=== PATIENT | male | born 1970 | race Caucasian/White ===

== ENCOUNTER 2016-08-16 18:25 | Emergency (ER) | payer SELFPAY ==
[2016-08-16 18:36] VITALS: BP 132/82; PULSE 84; RESP 16; TEMP 97.7; O2SAT 95
[2016-08-16] MEDS ORDERED: ACETAMINOPHEN 325 MG TAB PO ONE (18:40)
[2016-08-16] MEDS ORDERED: ONDANSETRON DISINTEGRATING 4 MG TAB PO ONE (18:40)
--- NOTE | 2016-08-16 18:55 | EDPHY ---
H & P Time Seen by Provider: 08/16/16 18:39 HPI/ROS: This patient was shoveling his driveway-no slipped and struck his occiput against the ground. He was briefly dazed for 2-3 minutes and now has a generalized headache peak intensity 8/10 down to 5/10 after Aleve-2 prior to arrival. The incident occurred at home 90 minutes prior to arrival. He reports mild nausea associated with this and mild fatigue. No other associated symptoms except mild trapezius discomfort bilaterally. ROS: Neuro: No retrograde amnesia. No focal neuro complaints. He denies any significant confusion. No LOC. HEENT: He notes no nasal pain, lacerations abrasions to his head. No intraoral injuries. Musculoskeletal: No midline neck or back pain. No extremity injuries from the incident. Pulmonary: No chest wall pain or shortness of breath Cardiovascular: No lightheadedness GI: No belly pain, or vomiting. 7 point ROS is otherwise negative Past Medical/Surgical History: Otherwise healthy Smoking Status: Never smoked Physical Exam: Physical exam: Vital signs are normal General: Patient is in no acute distress. HEENT: Is no external evidence of trauma on exam. Nose atraumatic. Ears: Clear bilaterally with no hemotympanum. Oropharynx: No dental trauma or malocclusion. No intraoral lacerations. Eyes: Pupils are equal and reactive to light. Extraocular motions are intact. Optic fundi: Clear with no papilledema or hemorrhage. Neck: Trachea is midline with no stridor. The patient has no midline neck tenderness and retains a full range of motion without increase in pain. Lungs: Clear to auscultation bilaterally Cardiac: Regular rate and rhythm no murmur gallop or rub. Chest: Nontender. Abdomen: Soft nontender no organomegaly Back: Nontender Extremities: Atraumatic Neuro: GCS of 15. Cranial nerves II through XII intact. 3 out of 3 five- minute memory is intact. Cerebellar exam is normal as judged by symmetric rapid hand movements bilaterally. No pronator drift. No sensory or motor deficits are appreciated. Initial differential diagnosis: Concussion without LOC, minor head injury, doubt cerebral contusion, skull fracture or other, trapezius strain Constitutional: Initial Vital Signs Temperature (C) 36.5 C 08/16/16 18:33 Heart Rate 84 08/16/16 18:33 Respiratory Rate 16 08/16/16 18:33 Blood Pressure 132/82 H 08/16/16 18:33 O2 Sat (%) 95 08/16/16 18:33 O2 Delivery Mode Room Air Allergies/Adverse Reactions: No Known Allergies Allergy (Verified 08/16/16 18:55) Home Medications: Medication Instructions Recorded NK [No Known Home Meds] 08/16/16 MDM/Departure - MDM Medications Given: Discontinued Medications Acetaminophen (Tylenol) 650 mg PO EDNOW ONE Stop: 08/16/16 18:41 Last Admin: 08/16/16 18:55 Dose: 650 mg Ondansetron HCl (Zofran Odt) 4 mg PO EDNOW ONE Stop: 08/16/16 18:41 Last Admin: 08/16/16 18:56 Dose: 4 mg ED Course/Re-evaluation: Patient is treated here with Tylenol. I counseled him regarding concussion. Patient has a history of 2 or 3 concussions in the distant past. 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 Clinically, no evidence to suggest bony injury, intracranial bleed or other concerning findings. - Depart Disposition: Home, Routine, Self-Care Clinical Impression: Concussion Qualifiers: Encounter type: initial encounter Loss of consciousness presence/duration: without LOC Qualified Code(s): S06.0X0A - Concussion without loss of consciousness, initial encounter Condition: Good Instructions: Concussion (ED) Additional Instructions: Diagnosis: Concussion without loss of consciousness Plan: Tylenol and Aleve or ibuprofen if needed for discomfort Avoid activities a petit risk for recurrent head injury for 7 days after resolution of her current symptoms Avoid flashing lights another intense activities into her symptoms improved. Return to the emergency department if he develops unbearable headache despite [id number] medications, vomiting more than twice, new confusion or other concerns. Referrals: NONE *PRIMARY CARE P,. [Primary Care Provider] - As per Instructions
== END 2016-08-16 19:00 | disposition home or self-care (01) ==
LOC: CED 18:25
DX: S06.0X0A Concussion without loss of consciousness, initial encounter (principal); W18.09XA Striking against other object with subsequent fall, initial encounter; Y92.009 Unspecified place in unspecified non-institutional (private) residence as the place of occurrence of the external cause; Y99.8 Other external cause status; Y93.H1 Activity, digging, shoveling and raking